=== PATIENT | male | born 1950 | race African-American/Black ===

== ENCOUNTER 2019-08-17 11:40 | Inpatient (IN) | payer MEDICARE, SELFPAY ==
[2019-08-17] VITALS (11 sets, daily range): BP systolic 131–175; BP diastolic 74–103; PULSE 60–72; RESP 14–20; TEMP 35.9–36.3; O2SAT 90–99; BMI 26.2
--- NOTE | ~2019-08-17 | US_ITS ---
EXAMINATION: US carotid duplex BI DATE: 08/18/2019 13:54 INDICATION: Syncope TECHNIQUE: Grayscale, color Doppler, and pulsed Doppler images of the cervical carotid arteries were obtained. The degree of vessel stenosis is placed in one of the following categories: normal, <50%, 5 0-69%, >=70% but less than near-occlusion, near-occlusion, or total occlusion. Note that percent sten osis relative to normal distal artery lumen diameter is indirectly measured from velocity measurement s as described by Bob, et al. Radiology 2003; 229:340-346. Notes: Normal: Peak systolic velocity <125 centimeters/sec and no plaque <50%. Peak systolic velocity <125 ( EDV <40; ICA/CCA PSV ratio <2.0; used these factors only a tandem lesions or low cardiac output or co ntralateral disease) 50-69 %: PSV 125-230 (EDV 40-100; ratio 2-4) >= 70% but less than near occlusion: PSV greater than 230 (EDV > 100; ratio> 4.0) Near Occlusion: PSV that is variable; markedly narrowed lumen Occlusion: Absent flow on color/spectral Doppler and no lumen on ingram scale. COMPARISON: None. FINDINGS: RIGHT: The right common carotid artery (CCA) peak systolic velocity (PSV) is 32 cm/s. The right internal car otid artery (ICA) PSV is 40 cm/s. The right ICA end-diastolic velocity (EDV) is 8 cm/s. The right ICA /CCA PSV ratio is 1.2. The external carotid artery (ECA) PSV is 55 cm/s. There is antegrade flow in t he right vertebral artery. LEFT: The left CCA PSV is 48 cm/s. The left ICA PSV is 65 cm/s. The left ICA EDV is 11 cm/s. The left ICA/C CA PSV ratio is 1.3. The ECA PSV is 58 cm/s. There is antegrade flow in the left vertebral artery. IMPRESSION: 1. Less than 50% stenosis in the right internal carotid artery by sonographic criteria. 2. Less than 50% stenosis in the left internal carotid artery by sonographic criteria. Reviewed, dictated and finalized at location B. NESS TRANSFORMATION ANALYST IMPRESSION: 1. Less than 50% stenosis in the right internal carotid artery by sonographic sonia hayes. 2. Less than 50% stenosis in the left internal carotid artery by sonographic frank rowell.
--- NOTE | ~2019-08-17 | CT_ITS ---
EXAMINATION: CT brain wo con EXAM DATE: 08/17/2019 16:17 Confusion. Low blood sugar. INDICATION: Altered mental status. TECHNIQUE: Spiral CT of the head was performed without contrast. Axial, coronal and sagittal images were reviewed. The dose-length product (DLP) for this examination was 605.33 mGy-cm. The exposure w as tailored according to patient size, and iterative reconstruction (ASIR) was used as additional dos e reduction technique. There is no prior study for comparison. FINDINGS: There is no acute intraparenchymal hemorrhage. No evidence of intraparenchymal brain mass lesion. No evidence of acute infarction. Please note that initial head CT has limited sensitivity f or small or acute infarctions. Large old right frontal lobe infarction. Moderate old left frontal lo be and right parietal lobe infarctions. Punctate old bilateral basal ganglia and left caudate head la cunar infarctions. There is moderate periventricular and subcortical hypodensity, nonspecific but pro bably related to small vessel ischemic disease. There is mild prominence of the sulci and ventricle s related to cerebral atrophy. There is intracranial carotid arteriosclerosis. There are no extra- axial collections. There is no mass effect or midline shift. The orbits are unremarkable. Soft tis keisha is unremarkable. The visualized sinuses and mastoid air cells are well aerated. Old mildly dep ressed right frontal sinus fracture. IMPRESSION: 1. No acute intracranial findings. 2. Chronic age related findings. 3. Old infarctions. Reviewed, dictated and finalized at location A. HOLOGIST EDUCATIONAL
--- NOTE | ~2019-08-17 | MR_ITS ---
EXAMINATION: MR brain/brain stem wo con DATE: 08/18/2019 15:03 INDICATION: Cerebrovascular accident. TECHNIQUE: Magnetic resonance imaging (MRI) of the brain and brainstem was performed without intraven ous contrast. Axial diffusion-weighted imaging was performed. The patient was unable to perform addit ional imaging. COMPARISON: Head CT 08/17/2019 FINDINGS: There is severe motion artifact. There are areas of chronic encephalomalacia in the right f rontal lobe, right temporal parietal occipital region, and left frontal lobe. Images are nondiagnosti c for evaluation of acute infarct. The ventricles are normal in size. IMPRESSION: 1. Chronic encephalomalacia in the right frontal lobe, right temporal parietal occipital region, and left frontal lobe. 2. Severe motion artifact. Images are nondiagnostic for evaluation of acute infarct. Reviewed, dictated and finalized at location A. RAL APPELLATE LAW CLERK IMPRESSION: 1. Chronic encephalomalacia in the right frontal lobe, right temporal parietal occipital region, and left frontal lobe. 2. Severe motion artifact. Images are nondiagnostic for evaluation of acute inf arct.
--- NOTE | ~2019-08-17 | XR_ITS ---
EXAMINATION: XR barium swallow modified DATE: 08/23/2019 10:30 INDICATION: Dysphagia after stroke TECHNIQUE: The patient was given barium-containing material of multiple consistencies to swallow by denilson vilchis speech pathologist while I performed fluoroscopy. A single fluoroscopic spot image was recorded. Denilson vilchis DAP for this procedure was 1.5 Gycm2. Fluoroscopy exposure time was 1.5 minutes. A single lateral spot radiograph of the neck soft tissues was obtained. FINDINGS: The single lateral spot radiograph of the neck demonstrates mild spondylosis. Patient was unable to i nitiate swallow therefore the examination was terminated IMPRESSION: 1. Patient unable to initiate swallow. Please refer to the speech therapy report for additional swall ow-related findings and intake recommendations. Reviewed, dictated and finalized at location A. SANDER IMPRESSION: 1. Patient unable to initiate swallow. Please refer to the speech therapy repor t for additional swallow-related findings and intake recommendations.
--- NOTE | ~2019-08-17 | XR_ITS ---
XR chest 1V portable 08/17/2019 12:30 Indication: Shortness of breath Procedure: AP portable chest Comparison: No prior studies for comparison. Findings: Cardiomegaly with interstitial edema. There is atherosclerosis of the aorta. No pneumothora x. Moderate osteoarthritis of the glenohumeral joints. Impression: 1: Cardiomegaly with interstitial edema. Reviewed, dictated and finalized at location B. RNED GOODS INSPECTOR Impression: 1: Cardiomegaly with interstitial edema.
[2019-08-17 11:45] LABS: Glucose Point of Care 81 (65-105)
--- NOTE | 2019-08-17 11:46 | ECG_ITS ---
Measurements Intervals [place] Rate: 61 P: 35 NV: 178 QRS: 203 QRSD: 138 T: -3 QT: 512 QTc: 516 Interpretive Statements SINUS RHYTHM POSSIBLE LEFT ATRIAL ENLARGEMENT INTRAVENTRICULAR CONDUCTION DELAY CANNOT RULE OUT SEPTAL INFARCT, AGE INDETERMINATE LATERAL INFARCT, AGE INDETERMINATE BORDERLINE ST-T WAVE ABNORMALITY- INF/LAT LEADS BASELINE ARTIFACT- V1 ABNORMAL ECG Electronically Signed On 08-17-2019 15:38:53 SEAPORT PLANNING MANAGER by Andrew Romo D.O.
--- NOTE | 2019-08-17 11:48 | ED.RECABL ---
HPI - Recheck/Abnormal Lab/Rx General Chief Complaint: Recheck/Abnormal Lab/Rx Stated Complaint: low blood sugar Time Seen by Provider: 08/17/19 11:43 Source: EMS and RN notes reviewed Mode of arrival: EMS Limitations: clinical condition History of Present Illness HPI narrative: Pt is a 69 y/o male with a PMHx of CVA, who presents to the ED, via EMS, from home with c/o low BS. Per EMS, pt's BS was 44 and he was given 1 AMP of D50. Per nurse, pt's BS was 81 upon arrival to the ED. Per nurse, pt does not speak at baseline because he is unable to form sentences, but occasionally blurts out words. Pt's family usually gives him his medications. Per EMS, pt was at 88% O2 Sat on room air so they applied 2L O2 via nasal cannula. A complete HPI is limited d/t pt's clinical condition. Per family pt has H/O several strokes in January of 2011. Pt's baseline is primarily nonverbal but is able to say yes or no . Family reports that since July 08, pt has had congestion and rhinorrhea and saw his PCP last week and received Abx. Pt was supposed to see PCP today but was too weak. Pt can normally ambulate on his own but for the past week has been laying around. Pt has a lack of appetite x1 week but was able to eat yesterday. He sometimes chokes when eating. Pt has a recent onset of bottom lip drooping and is no longer following normal commands. Pt no longer able to use the toilet and relies on depends to urinate. MD complaint: abnormal lab (low BS) Returns today for: other (low BS) Description of abnormal result: Glucose was 44 Associated symptoms: none Treatments prior to arrival: other (1 AMP of D50, 2L O2) Related Data Home Medications Medication Instructions Recorded Confirmed amlodipine 10 mg tablet 10 mg PO DAILY 06/08/19 08/01/19 aspirin 325 mg tablet 325 mg PO DAILY 06/08/19 08/01/19 blood sugar diagnostic #10 each 06/08/19 08/01/19 blood-glucose meter #1 each 06/08/19 08/01/19 carvedilol 25 mg tablet 25 mg PO BID tablet 06/08/19 08/01/19 cetirizine 10 mg tablet 5 mg PO DAILY PRN 06/08/19 08/01/19 citalopram 20 mg tablet 20 mg PO DAILY 06/08/19 08/01/19 famotidine 20 mg tablet 20 mg PO BID tablet 06/08/19 08/01/19 hydralazine 50 mg tablet 50 mg PO TID 06/08/19 08/01/19 hydrochlorothiazide 12.5 mg tablet 12.5 mg PO DAILY 06/08/19 08/01/19 losartan 25 mg tablet 25 mg PO DAILY 06/08/19 08/01/19 rosuvastatin 20 mg tablet 20 mg PO DAILY 06/08/19 08/01/19 Allergies Allergy/AdvReac Type Severity Reaction Status Date / Time latex Allergy Unknown Unknown Verified 06/08/19 14:56 Penicillins Allergy Unknown Unknown Verified 06/08/19 14:56 Review of Systems Review of Systems: ROS unobtainable: unobtainable due to mental condition [facility] Past Medical History Medical History (Updated 08/17/19 @ 17:16 by Basilio Denis DO) Allergies Catat[place] CHF (congestive heart failure) Hypertension Stroke 3: 04/2012 Swallowing difficulty Syncope Type 2 diabetes mellitus Surgical History Surgical History (Updated 08/17/19 @ 11:57 by Geo Kraus) No significant past surgical history Family History Family History (Updated 06/07/19 @ 16:54 by Naa Rivera [facility]) Father Hypertension Acute myocardial infarction Mother Hypertension Cerebrovascular accident Heart disease Sibling Asthma Sibling Epilepsy Social History Social History Smoking packs per day: 1 Smoking cigarettes per day: 20.0 Smoking status: Former smoker Smoking end date: 08/02/99 Alcohol intake: never Substance use: never Gender identity (if verbalized by the patient): Male Exam Narrative: Exam Narrative: APPEARANCE: No acute distress, nontoxic, resting in bed EYES: PERRL HEENT: Normocephalic, atraumatic, oral mucosa dry RESPIRATORY: No respiratory distress Clear to auscultation bilaterally with no rhonchi wheezing or rales. CARDIOVASCULAR: Regular rate and rhythm without murmurs rubs or
[2019-08-17] MEDS: DEXTROSE 50% 25 GM/50 ML SYRINGE IV PUSH ×2 (13:22→18:15)
[2019-08-17 13:23] LABS: Glucose Point of Care 59 (65-105)
[2019-08-17 14:02] LABS: Basophils Percent Auto 0.2 % (0.2-1.2); Eosinophils Percent Auto 0.5 % (0-4.4); Hematocrit 43.7 % (42.0-52.0); Hemoglobin 13.9 g/dL (14.0-18.0); Immature Granulocyte Absolute 0.03 K/mm3 (0.00-0.031); Immature Granulocyte Percent A 0.7 % (0-0.5); Lymphocytes Percent Auto 11.5 % (18.3-44.2); Mean Corpuscular HGB Conc 31.8 g/dl (32-36); Mean Platelet Volume 9.7 fl (7.4-10.4); Monocytes Absolute Auto 0.5 K/mm3 (0.1-0.6); Monocytes Percent Auto 11.8 % (2.6-8.5); Neutrophils Absolute Auto 3.3 K/mm3 (1.3-6.7); Neutrophils Percent Auto 75.3 % (45.5-73.1); Nucleated Red Blood Cells Perc 0.5 % (0.0-0.2); Platelet Count Result 227 k/mm3 (150-375); Red Cell Distribution Width 14.9 % (11.5-14.5); White Blood Count 4.3 K/mm3 (4.5-10.0)
[2019-08-17 14:30] LABS: Glucose Point of Care 99 (65-105)
--- NOTE | 2019-08-17 14:30 | PC.NURSE ---
per friend states pt has not been eating or drinking well since july. has been holding food and meds in his mouth. less alert than his normal. states pt is normally nonverbal on his best days.
[2019-08-17 14:40] LABS: Add Urine Microscopic? YES; Appearance Urine Clear (Clear); Bacteria Urine Trace /hpf; Bilirubin Urine Negative (Negative); Blood Urine 1+ (Negative); Color Urine Yellow (Yellow); Glucose Urine UA 3+ mg/dL (Negative); Ketones Urine Negative (Negative); Leukocyte Esterase Ur Negative LEU/UL (Negative); Mucus Urine Rare /lpf; Nitrate Urine Negative (Negative); Protein Urine 3+ mg/dL (Negative); RBC Urine 0-2 /hpf (0-2); Specific Grav Ur 1.026 (1.001-1.035); Squamous Epithelial Cell Urine Rare /hpf (Few); WBC Urine 0-3 /hpf
[2019-08-17 15:45] LABS: Glucose Point of Care 70 (65-105)
[2019-08-17 16:44] LABS: Blood Urea Nitrogen 26 mg/dL (9-20); Calcium 9.1 mg/dL (8.4-10.2); Carbon Dioxide 21 mmol/L (22-30); Chloride 110 mmol/L (98-107); Estimated CRCL calculation 50 ml/min; Estimated Glomerular Filt Rate > 60; Glucose 71 mg/dL (75-110); Potassium 3.5 mmol/L (3.4-5.0); Sodium 144 mmol/L (137-145)
[2019-08-17] MEDS: DEXTROSE 5%/0.45% SOD CHL 1,000 ML 100 ML IV CONT (17:02)
[2019-08-17 17:03] LABS: Glucose Point of Care 66 (65-105)
[2019-08-17 18:07] LABS: Glucose Point of Care 45 (65-105)
[2019-08-17 18:50] LABS: Glucose Point of Care 100 (65-105)
--- NOTE | 2019-08-17 20:01 | PM.IMHP ---
H&P: HPI History of Present Illness Chief complaint: hypoglycemia Narrative: This is a 69 year old Diabetic male with known #3 past CVAs in 2010 who presented to the hospital after suffering what appeared to be a syncopal episode at home today. The patient is known to normally eat well on his own and is nonverbal from his previous CVAs. The patient's signifciant other who lives with him states she has noticed that he has had a decline over the past few weeks including more confusion and more difficulty swallowing. He last ate food yesterday but has not been drinking any fluids over the past few days. She also noticed that the patient is mostly just sleeping all the time now and has been much more confused this week. He normally follows commands well and for the past 2 days he hasn't been following her commands. She hasn't noticed that he has had a fever. Today they were at home and she was trying to get him ready to go to the doctor's office when he was walking in the living room and simply started to go down. He describes him falling up against the wall and sliding down. He was poorly responsive and drooling out of the left side of his mouth. EMS was called and on arrival they found his blood glucose to be 35 mg/dl. The patient was evaluated in the ER tonight and found to be hypoglycemic. He was started on Dextrose IV. We have been asked to admit the patient to the hospital for his acute altered mental status. The patient is nonverbal and only opens his eyes to physical stimuli tonight. He will not follow any commands. Review of Systems Review of Systems: All systems reviewed & are unremarkable except as noted in HPI and below PMFSH Past Medical History Medical History Allergies Catat[place] CHF (congestive heart failure) Hypertension Stroke 3: 04/2012 Swallowing difficulty Syncope Type 2 diabetes mellitus Surgical History Surgical History No significant past surgical history Family History Family History Father Hypertension Acute myocardial infarction Mother Hypertension Cerebrovascular accident Heart disease Sibling Asthma Sibling Epilepsy Social History Social History Smoking packs per day: 1 Smoking cigarettes per day: 20.0 Years smoked: 25 Smoking pack-years: 25.00 Smoking status: Former smoker Tobacco type: cigarettes Smoking end date: 08/02/99 Alcohol intake: never Substance use: never Gender identity (if verbalized by the patient): Male Spiritual care concerns: No Meds Home Medications and Allergies Home Medications Medication Instructions Recorded Confirmed Type amlodipine 10 mg tablet 10 mg PO DAILY 06/08/19 08/17/19 History aspirin 325 mg tablet 325 mg PO DAILY 06/08/19 08/17/19 History carvedilol 25 mg tablet 25 mg PO BID tablet 06/08/19 08/17/19 History cetirizine 10 mg tablet 5 mg PO DAILY PRN 06/08/19 08/17/19 History citalopram 20 mg tablet 20 mg PO DAILY 06/08/19 08/17/19 History famotidine 20 mg tablet 20 mg PO BID tablet 06/08/19 08/17/19 History hydralazine 50 mg tablet 50 mg PO TID 06/08/19 08/17/19 History hydrochlorothiazide 12.5 mg tablet 12.5 mg PO DAILY 06/08/19 08/17/19 History losartan 25 mg tablet 25 mg PO DAILY 06/08/19 08/17/19 History rosuvastatin 20 mg tablet 20 mg PO DAILY 06/08/19 08/17/19 History metformin 500 mg tablet 1,000 mg PO BID #360 tablet 07/24/19 08/17/19 Rx insulin glargine [Sandraaglar KwikPen 36 unit SUBCUT HS 08/17/19 08/17/19 History U-100 Insulin] Allergies Allergy/AdvReac Type Severity Reaction Status Date / Time latex Allergy Unknown Unknown Verified 06/08/19 14:56 Penicillins Allergy Unknown Unknown Verified 06/08/19 14:56 Vital Signs Vital Signs - 24 hr 08/17/19 11:45 08/17/19 12:15
[2019-08-17 20:17] LABS: Glucose Point of Care 124 (65-105)
[2019-08-17 21:07] LABS: Glucose Point of Care 87 (65-105)
--- NOTE | 2019-08-17 21:55 | ADMGEN ---
This patient, Mak Holcomb, was admitted to IMU Room 203-01. Patient/family oriented to hospital policies and general routines including ID bracelet, bed and alarms, visiting hours, pain management, procedures, bathroom and other care routines, personal items, smoking policy, room service/diet, and visiting hours. Valuables list has been completed. Information on how to activate the Rapid Response Team has been discussed. Patient/Family are encouraged to report perceived risks to care and to ask questions if they do not understand what they are told or what they should do.
[2019-08-17 23:14] LABS: Glucose Point of Care 109 (65-105)
[2019-08-18] VITALS (11 sets, daily range): BP systolic 148–159; BP diastolic 71–106; PULSE 64–106; RESP 20–26; TEMP 35.9–36.3; O2SAT 90–100; BMI 27.1
--- NOTE | 2019-08-18 | ECHO_ITS ---
Patient Info Name: Mak Holcomb Age: 69 years : 1950 Gender: Male Ht: 68 in Wt: 172 lbs BSA: 1.95 m2 HR: 45 bpm BP: 177 / 71 mmHg Technical Quality: Good Exam Date: 08/18/2019 11:17 AM Exam Location: [facility] Patient Status: Outpatient Admit Date: 08/17/2019 Staff Ordering Physician: Guru Frausto MD Hand Ii Cutter: Erwin Whelan, SEVERIANO, RT Attending Provider: Edna Holbrook MD Referring Physician: Jett RAJAN; Exam Type: CA echo doppler color flow Study Info Indications I50.9 - Heart failure, unspecified Complete two-dimensional, color flow and Doppler transthoracic echocardiogram is performed. Summary 1. Left ventricular chamber dimension is severely enlarged. 2. Left ventricular systolic function is severely reduced, estimated at 15-20%. 3. Left ventricular septal wall motion is abnormal with septal motion related to bundle branch block. 4. The left ventricular diastolic function is grade III diastolic dysfunction. 5. E/e' 28 is significantly elevated. 6. TAPSE 1.4 cm suggests RV systolic dysfunction. 7. Left atrial chamber dimension is moderately enlarged. 8. Right atrial chamber dimension is moderately enlarged. 9. There is mild aortic valve sclerosis. 10. Mildly thickened mitral valve leaflets. 11. There is moderate to severe mitral valve regurgitation. 12. There is mild to moderate tricuspid valve regurgitation. 13. Severe pulmonary hypertension, estimated pulmonary arterial systolic pressure is 87 mmHg. 14. There is trace pulmonic regurgitation. 15. Dilated inferior vena cava with >50% collapse upon inspiration consistent with elevated right atrial pressure, 10 mmHg. 16. There is small circumferential pericardial effusion. Left Ventricle E/e' 28 is significantly elevated. Left ventricular chamber dimension is severely enlarged. Left ventricular systolic function is severely reduced, estimated at 15-20%. Left ventricular septal wall motion is abnormal with septal motion related to bundle branch block. The left ventricular diastolic function is grade III diastolic dysfunction. Right Ventricle TAPSE 1.4 cm suggests RV systolic dysfunction. Right ventricular chamber dimension is normal. Right ventricular systolic function is reduced. Left Atria Left atrial chamber dimension is moderately enlarged. Right Atria Right atrial chamber dimension is moderately enlarged. Aortic Valve The aortic valve is trileaflet. There is mild aortic valve sclerosis. There is no aortic valve stenosis. There is no aortic valve regurgitation. Pulmonic Valve There is trace pulmonic regurgitation. Mitral Valve Mildly thickened mitral valve leaflets. There is no mitral valve stenosis. There is moderate to severe mitral valve regurgitation. Tricuspid Valve There is mild to moderate tricuspid valve regurgitation. Severe pulmonary hypertension, estimated pulmonary arterial systolic pressure is 87 mmHg. Pericardium/Pleural There is small circumferential pericardial effusion. Inferior Vena Cava Dilated inferior vena cava with >50% collapse upon inspiration consistent with elevated right atrial pressure, 10 mmHg. Aorta The aortic root size at the sinus of Valsalva is normal. Left Ventricular Outflow Tract Name Value Normal LVOT 2D
[2019-08-18] MEDS: DEXTROSE 5%/0.45% SOD CHL 1,000 ML 160 ML IV CONT ×2 (00:39→06:22)
[2019-08-18 03:54] LABS: Glucose Point of Care 127 (65-105)
[2019-08-18 05:18] LABS: Basophils Percent Auto 0.5 % (0.2-1.2); Eosinophils Absolute Auto 0.1 K/mm3 (0-0.3); Eosinophils Percent Auto 2.1 % (0-4.4); Hematocrit 44.2 % (42.0-52.0); Hemoglobin 13.9 g/dL (14.0-18.0); Immature Granulocyte Absolute 0.01 K/mm3 (0.00-0.031); Immature Granulocyte Percent A 0.3 % (0-0.5); Lymphocytes Absolute Auto 0.54 K/mm3 (0.9-3.2); Lymphocytes Percent Auto 13.9 % (18.3-44.2); Mean Corpuscular HGB Conc 31.4 g/dl (32-36); Mean Corpuscular Hemoglobin 29.1 pg (26-34); Mean Corpuscular Volume 92.7 fl (80-100); Mean Platelet Volume 9.3 fl (7.4-10.4); Monocytes Absolute Auto 0.4 K/mm3 (0.1-0.6); Monocytes Percent Auto 10.8 % (2.6-8.5); Neutrophils Absolute Auto 2.8 K/mm3 (1.3-6.7); Neutrophils Percent Auto 72.4 % (45.5-73.1); Nucleated Red Blood Cells Perc 0.5 % (0.0-0.2); Platelet Count Result 238 k/mm3 (150-375); Red Blood Count 4.77 M/mm3 (4.6-6.20); Red Cell Distribution Width 14.9 % (11.5-14.5); White Blood Count 3.9 K/mm3 (4.5-10.0)
[2019-08-18 05:27] LABS: Blood Urea Nitrogen 20 mg/dL (9-20); Calcium 8.6 mg/dL (8.4-10.2); Carbon Dioxide 24 mmol/L (22-30); Chloride 110 mmol/L (98-107); Cholesterol 106 mg/dL (0-200); Estimated CRCL calculation 50 ml/min; Estimated Glomerular Filt Rate > 60; Glucose 137 mg/dL (75-110); HDL Direct 34 mg/dL; Potassium 3.3 mmol/L (3.4-5.0); Sodium 140 mmol/L (137-145); Triglycerides 52 mg/dL (<150)
[2019-08-18 05:37] LABS: LDL Cholesterol Direct 51 mg/dL
[2019-08-18 06:35] LABS: Folic Acid 9.2 ng/mL (2.76->20)
[2019-08-18 08:11] LABS: Glucose Point of Care 141 (65-105)
--- NOTE | 2019-08-18 12:34 | PCSTNOTE ---
Therapist was informed by nursing that this patient is not awake and alert enough to respond to evaluation tasks including MBS. Nursing will reassess tomorrow for appropriateness for evaluation tasks.
[2019-08-18 12:42] LABS: Glucose Point of Care 196 (65-105)
--- NOTE | 2019-08-18 16:05 | PM.IMPN ---
Progress Note: A&P Assessment and Plan (1) Acute encephalopathy: Code(s): G93.40 - Encephalopathy, unspecified Status: Acute Assessment and Plan: Sugar has been corrected and most likely acute metabolic encephalopathy but still remains less responsive according to caregiver. Continue to monitor sugars closely and provide supportive care. MR today nondiagnostic due to motion artifact (2) Hypoglycemia: Code(s): E16.2 - Hypoglycemia, unspecified Status: Acute Assessment and Plan: Metformin and Lantus both are on hold continue to monitor (3) Hypertension: Code(s): I10 - Essential (primary) hypertension Status: Chronic Assessment and Plan: Slightly permissive hypertension because still could be infarct over dealing with. He has not been alert no to take his oral medication (4) CHF (congestive heart failure): Code(s): I50.9 - Heart failure, unspecified Status: Chronic Assessment and Plan: Chronic combined systolic and diastolic heart failure as evidence by echo today with EF 15% and grade 3 diastolic dysfunction. Will decrease his fluid so as not to fluid overload and resume oral medications as soon as possible Subjective Date/time seen: 08/18/19 16:05 Interval history: Date of visit 08/18/2019. 69-year-old hypertensive type 2 diabetic status post CVA with chronic aphasia admitted with altered mental status and found to be hypoglycemic. Sugar was corrected Medi slow to respond back to his baseline. Exam Narrative: Exam Narrative: Blood pressure 156/100 pulse is 84 and regular satting 100% on room air afebrile Pupils equal reactive to light sclera anicteric Lungs clear no wheezing consolidation CV regular rate rhythm no murmurs Abdomen is soft nontender Extremities without edema Neuro not following any commands or responding to verbal stimuli, nothing definitely focal been has chronic aphasia Objective Data Vital Signs Vital Signs: Vital Signs - 24 hr 08/17/19 16:18 08/17/19 17:50 08/17/19 18:56 Temperature Pulse Rate 72 72 69 Respiratory Rate 16 16 16 Blood Pressure 131/99 H 172/103 H 161/98 H Pulse Oximetry 99 08/17/19 19:12 08/17/19 20:00 08/17/19 22:00 Temperature 35.9 C L Pulse Rate 72 69 68 Respiratory Rate 20 Blood Pressure 157/74 H Pulse Oximetry 95 08/18/19 00:00 08/18/19 02:00 08/18/19 03:53 Temperature 36.3 C L Pulse Rate 66 64 69 Respiratory Rate 20 26 H Blood Pressure 153/74 H Pulse Oximetry 95 90 08/18/19 04:00 08/18/19 05:50 08/18/19 08:00 Temperature 36.2 C L Pulse Rate 69 69 86 Respiratory Rate 26 H 22 H Blood Pressure 157/97 H Pulse Oximetry 90 100 08/18/19 12:07 08/18/19 15:47 Temperature 35.9 C L 36.1 C L Pulse Rate 70 84 Respiratory Rate 22 H 22 H Blood Pressure 148/81 H 159/106 H Pulse Oximetry 93 100 Intake/Output Intake/Output: Intake & Output 08/15/19 08/16/19 08/17/19 08/18/19 23:59 23:59 23:59 23:59 Intake Total 1000 1000 Balance 1000 1000 Meds/Results Medications: Active Medications Generic Name Dose Route Start Last Admin Trade Name Freq PRN Reason Stop Dose Admin Dextrose 12.5 gm 08/17/19 17:11 08/17/19 18:15 Dextrose 50% Syringe IV PUSH 12.5 gm PRN PRN Administration Hypoglycemia Protocol Glucose 15 gm 08/17/19 17:11 Glutose 15 PO PRN PRN Hypoglycemia Protocol Hydralazine HCl 10 mg 08/17/19 20:02 Apresoline Hcl Inj IV PUSH Q8H PRN see comments Dextrose 1,000 mls @ 100 mls/hr 08/17/19 17:11 Dextrose 5% 1,000 Ml IVPB PRN PRN Hypoglycemia Protocol Potassium Chloride 500 mls @ 125 mls/hr 08/18/19 12:21 08/18/19 15:03 Kcl 40 Meq/D5w 500 Ml Peripheral IVPB 08/18/19 16:20 125 mls/hr ONCE ONE Administration Dextrose 1,000 mls @ 30 mls/hr 08/18/19 15:55 Dextrose 5% 1,000 Ml IV CONT .Q24H RUDY Radiology Results: ITS Impressions
[2019-08-18 16:13] LABS: Glucose Point of Care 142 (65-105)
--- NOTE | 2019-08-18 17:27 | CONS_ITS ---
DATE OF CONSULTATION: Patient of Dr. Edna Holbrook. HISTORY: A 69-year-old has been admitted to [facility] through the emergency room for the complaint of syncopal episode at home. The patient carries the diagnosis of: 1. Diabetes mellitus. 2. Recurrent cerebrovascular accident. 3. Congestive heart failure. 4. Hypertension. 5. Dysphagia. At the time of admission, as per the information available from the family, he normally eats well, but over the last several days, he declined significantly with more difficulties in swallowing, difficulties in following the commands. By the time he came to the emergency room this time, his blood sugar was only 35, for which he was treated accordingly. He has been taking multiple medications as outlined. PHYSICAL EXAMINATION: VITAL SIGNS: Stable. GENERAL: On examination today, he was awake, alert, but appearing somewhat well. He was able to follow the verbal commands. HEENT: Head was normocephalic with no cranial bruit. NECK: Supple with no meningeal signs. No cervical bruit. No thyromegaly. No lymphadenopathy. HEART: Regular. LUNGS: Clear. ABDOMEN: Soft. NEUROLOGICAL: He was awake, alert. Pupils round, regular. Wray of vision full. Extraocular movements full. Face symmetrical. Tongue midline. Uvula midline. Motor examination revealed him to have decreased strength 4/5 in upper and lower extremities in addition to the decreased sensation distally in both lower extremities. Plantar responses were questionably up. Evaluation up until now included CT scan of the head, which was compatible with old infarction, large right frontal lobe infarct, and old left frontal lobe and right parietal lobe infarct as well with bilateral basal ganglia and caudate nucleus involvement. At this stage, he is receiving hydralazine 10 mg IV q.8 hours p.r.n. He will be started on the aspirin subsequently and we will also obtain the EEG. IDANIA HALL M.D. LAB ASSOCIATE LAB ASSOCIATE D I MT: Nick IRVING
[2019-08-18 20:42] LABS: Glucose Point of Care 156 (65-105)
[2019-08-18 23:49] LABS: Glucose Point of Care 139 (65-105)
[2019-08-19] VITALS (10 sets, daily range): BP systolic 107–184; BP diastolic 64–94; PULSE 68–82; RESP 20–24; TEMP 36.1–36.8; O2SAT 80–100
[2019-08-19 05:09] LABS: Blood Urea Nitrogen 18 mg/dL (9-20); Calcium 8.4 mg/dL (8.4-10.2); Carbon Dioxide 22 mmol/L (22-30); Chloride 111 mmol/L (98-107); Estimated CRCL calculation 43 ml/min; Estimated Glomerular Filt Rate > 60; Glucose 116 mg/dL (75-110); Potassium 3.6 mmol/L (3.4-5.0); Sodium 141 mmol/L (137-145)
[2019-08-19 05:19] LABS: Glucose Point of Care 122 (65-105)
[2019-08-19] MEDS: DEXTROSE 5% 1,000 ML 1,000 ML 30 ML IV CONT (05:38)
--- NOTE | 2019-08-19 10:39 | PC.NURSE ---
This patient, Mak Holcomb, was transferred to [facility] on 08/19/19 at 1038. Personal belongings sent with patient. Belongings list checked and signed with receiving RN. Report given to BERT Olsen. Appropriate documentation sent with patient.
--- NOTE | 2019-08-19 10:40 | PC.NURSE ---
This patient, Mak Holcomb, was received from [facility] on 08/19/19 at 1040. Personal belongings list checked and signed. Patient/family oriented to unit policies and routines
[2019-08-19 12:33] LABS: Glucose Point of Care 97 (65-105)
--- NOTE | 2019-08-19 12:46 | PCSTNOTE ---
Bedside Swallow Evaluation This patient was seen for a bedside swallow evaluation due to worsening dysphagia in the last few days. He has a history of dysphagia after 3 pasts CVAs, but his significant other reported that it had worsened, along with his general mental status and ability to follow commands. The pt is nonverbal at baseline and was not able to follow commands during this evaluation. The pt was seated upright at the edge of the bed and given trials of thin liquid via cup, which elicited coughing. Trials of moderately thick liquid, extremely thick liquid, and puree did not elicit coughing, but left significant oral residue indicating only partial deglutition. The pt's pharyngeal swallow was severely delayed. It is recommended for the pt to remain NPO until his mental status improves and he can initiate swallows. Therapeutic feedings only to focus on initiation of swallow and bolus control to reduce oral residue. If mental status improves, consider advancing diet. [ End ]
--- NOTE | 2019-08-19 13:19 | WPDNEUROPN ---
Progress Note: A&P Additional Plan bihemispheric disease with dysphagia/discussed with Review of Systems Review of Systems: All systems reviewed & are unremarkable except as noted in HPI and below Exam Const: General: no acute distress, confusion and ill appearing Nutritional Appearance: average body habitus Orientation/consciousness: confusion Limitations: altered mental status and physical limitations Eyes: General: appearance normal, both eyes and all related structures Pupils: Equal, round and reactive pupils present EOM: EOMs intact bilaterally Neck: Neck: full ROM Resp: Auscultation: clear to auscultation bilaterally GI: Auscultation: normal bowel sounds Neuro: Cranial nerves: Yes Nystagmus not present Cognition (Neuro): abnormal cognition Speech: Abnormal speech present Gait exam (Neuro): Unable to assess gait Motor exam (neuro): Abnormal motor strength present Sensory Exam: Sensory deficit (Neuro) Objective Data Vital Signs Vital Signs: Vital Signs - 24 hr 08/18/19 15:47 08/18/19 20:00 08/18/19 20:26 Temperature 36.1 C L 36.1 C L Pulse Rate 84 106 H 106 H Respiratory Rate 22 H 22 H 22 H Blood Pressure 159/106 H 156/77 H Pulse Oximetry 100 90 90 08/18/19 23:52 08/19/19 04:10 08/19/19 05:03 Temperature 36.2 C L 36.3 C L Pulse Rate 72 82 Respiratory Rate 22 H 24 H Blood Pressure 149/71 H 184/94 H Pulse Oximetry 93 90 80 L 08/19/19 05:37 08/19/19 08:00 08/19/19 10:53 Temperature 36.1 C L 36.4 C Pulse Rate 72 70 Respiratory Rate 20 20 Blood Pressure 154/73 H 152/80 H 148/92 H Pulse Oximetry 100 93 100 Intake/Output Intake/Output: Intake & Output 08/16/19 08/17/19 08/18/19 08/19/19 23:59 23:59 23:59 23:59 Intake Total 1000 2500 Balance 1000 2500 Meds/Results Medications: Active Medications Generic Name Dose Route Start Last Admin Trade Name Freq PRN Reason Stop Dose Admin Dextrose 12.5 gm 08/17/19 17:11 08/17/19 18:15 Dextrose 50% Syringe IV PUSH 12.5 gm PRN PRN Administration Hypoglycemia Protocol Glucose 15 gm 08/17/19 17:11 Glutose 15 PO PRN PRN Hypoglycemia Protocol Hydralazine HCl 10 mg 08/17/19 20:02 Apresoline Hcl Inj IV PUSH Q8H PRN see comments Dextrose 1,000 mls @ 100 mls/hr 08/17/19 17:11 Dextrose 5% 1,000 Ml IVPB PRN PRN Hypoglycemia Protocol Dextrose 1,000 mls @ 30 mls/hr 08/18/19 15:55 08/19/19 05:38 Dextrose 5% 1,000 Ml IV CONT 30 mls/hr .Q24H RUDY Administration Radiology Results: ITS Impressions Chest X-Ray 08/17/19 12:32 Impression: 1: Cardiomegaly with interstitial edema. Head CT 08/17/19 16:23 IMPRESSION: 1. No acute intracranial findings. 2. Chronic age related findings. 3. Old infarctions. Carotid Doppler Study 08/18/19 14:08 IMPRESSION: 1. Less than 50% stenosis in the right internal carotid artery by sonographic criteria. 2. Less than 50% stenosis in the left internal carotid artery by sonographic criteria. Brain MRI 08/18/19 15:25 IMPRESSION: 1. Chronic encephalomalacia in the right frontal lobe, right temporal parietal occipital region, and left frontal lobe. 2. Severe motion artifact. Images are nondiagnostic for evaluation of acute infarct. Labs Labs: Laboratory Results - last 24 hr 08/18/19 08/18/19 08/18/19 16:10 20:37 23:34 Sodium Potassium Chloride Carbon Dioxide BUN Creatinine Estim Creat Clear Calc Estimated GFR Glucose POC Capillary Glucose 142 H 156 H 139 H Calcium 08/19/19 08/19/19 08/19/19 04:13 05:16 12:30 Sodium 141 Potassium 3.6 Chloride 111 H Carbon Dioxide 22 BUN 18 Creatinine 1.40 H Estim Creat Clear Calc 43 Estimated GFR > 60 Glucose 116 H POC Capillary Glucose 122 H 97 Calcium 8.4 Quality VTE Prophylaxis VTE prophylaxis: mechanical ordered
--- NOTE | 2019-08-19 16:30 | PM.IMPN ---
Progress Note: A&P Assessment and Plan (1) Acute encephalopathy: Code(s): G93.40 - Encephalopathy, unspecified Status: Acute Assessment and Plan: Sugar has been corrected and most likely acute metabolic encephalopathy but still remains less responsive according to caregiver. Continue to monitor sugars closely and provide supportive care. MR 1/17 nondiagnostic due to motion artifact Speech therapy feels still not safe for oral meds and food (2) Hypoglycemia: Code(s): E16.2 - Hypoglycemia, unspecified Status: Acute Assessment and Plan: Metformin and Lantus both are on hold continue to monitor FBS today on D5W still 116 (3) Hypertension: Code(s): I10 - Essential (primary) hypertension Status: Chronic Assessment and Plan: Slightly permissive hypertension because still could be infarct dealing with. He has not been alert enough take his oral medication (4) CHF (congestive heart failure): Code(s): I50.9 - Heart failure, unspecified Status: Chronic Assessment and Plan: Chronic combined systolic and diastolic heart failure as evidence by echo today with EF 15% and grade 3 diastolic dysfunction. l decreased his fluid/17 so as not to fluid overload and resume oral medications as soon as possible Subjective Date/time seen: 08/19/19 16:30 Interval history: Date of visit 08/19/2019. 69-year-old hypertensive type 2 diabetic status post CVA with chronic aphasia admitted with altered mental status and found to be hypoglycemic. Sugar was corrected but slow to respond back to his baseline. More alert today but still not following simple commands Exam Narrative: Exam Narrative: Blood pressure 172/80 pulse is 68 and regular satting 100% on room air afebrile Pupils equal reactive to light sclera anicteric Lungs clear no wheezing consolidation CV regular rate rhythm no murmurs Abdomen is soft nontender Extremities without edema Neuro not following any commands but opens eyes to verbal stimuli, nothing definitely focal , has chronic aphasia Objective Data Vital Signs Vital Signs: Vital Signs - 24 hr 08/18/19 20:00 08/18/19 20:26 08/18/19 23:52 Temperature 36.1 C L 36.2 C L Pulse Rate 106 H 106 H 72 Respiratory Rate 22 H 22 H 22 H Blood Pressure 156/77 H 149/71 H Pulse Oximetry 90 90 93 08/19/19 04:10 08/19/19 05:03 08/19/19 05:37 Temperature 36.3 C L Pulse Rate 82 Respiratory Rate 24 H Blood Pressure 184/94 H 154/73 H Pulse Oximetry 90 80 L 100 08/19/19 08:00 08/19/19 10:53 08/19/19 15:12 Temperature 36.1 C L 36.4 C Pulse Rate 72 70 Respiratory Rate 20 20 Blood Pressure 152/80 H 148/92 H Pulse Oximetry 93 100 87 L 08/19/19 15:13 08/19/19 16:28 Temperature 36.8 C Pulse Rate 68 Respiratory Rate 22 H Blood Pressure 172/89 H Pulse Oximetry 90 94 Intake/Output Intake/Output: Intake & Output 08/16/19 08/17/19 08/18/19 08/19/19 23:59 23:59 23:59 23:59 Intake Total 1000 2500 Balance 1000 2500 Meds/Results Medications: Active Medications Generic Name Dose Route Start Last Admin Trade Name Freq PRN Reason Stop Dose Admin Dextrose 12.5 gm 08/17/19 17:11 08/17/19 18:15 Dextrose 50% Syringe IV PUSH 12.5 gm PRN PRN Administration Hypoglycemia Protocol Glucose 15 gm 08/17/19 17:11 Glutose 15 PO PRN PRN Hypoglycemia Protocol Hydralazine HCl 10 mg 08/17/19 20:02 Apresoline Hcl Inj IV PUSH Q8H PRN see comments Dextrose 1,000 mls @ 100 mls/hr 08/17/19 17:11 Dextrose 5% 1,000 Ml IVPB PRN PRN Hypoglycemia Protocol Dextrose 1,000 mls @ 30 mls/hr 08/18/19 15:55 08/19/19 05:38 Dextrose 5% 1,000 Ml IV CONT 30 mls/hr .Q24H RUDY Administration Radiology Results: ITS Impressions Chest X-Ray 08/17/19 12:32 Impression: 1: Cardiomegaly with interstitial edema. Head CT 08/17/19 16:23 IMPRESSION: 1. No acute intra
[2019-08-19] MEDS: hydrALAZINE HCL 20 MG/ML VIAL 10 MG IV PUSH (17:17)
[2019-08-19 17:55] LABS: Glucose Point of Care 98 (65-105)
[2019-08-19] MEDS: ENOXAPARIN 40 MG/0.4 ML SYRINGE SUB-Q (21:41)
[2019-08-20] MEDS: DEXTROSE 5% 1,000 ML 1,000 ML 30 ML IV CONT (05:31)
[2019-08-20 06:37] VITALS: BP 154/80; PULSE 67; RESP 18; TEMP 36.3; O2SAT 98
[2019-08-20 08:44] LABS: Basophils Percent Auto 0.5 % (0.2-1.2); Eosinophils Absolute Auto 0.1 K/mm3 (0-0.3); Eosinophils Percent Auto 2.7 % (0-4.4); Hematocrit 47.4 % (42.0-52.0); Hemoglobin 14.7 g/dL (14.0-18.0); Immature Granulocyte Absolute 0.01 K/mm3 (0.00-0.031); Immature Granulocyte Percent A 0.3 % (0-0.5); Lymphocytes Absolute Auto 0.61 K/mm3 (0.9-3.2); Lymphocytes Percent Auto 16.7 % (18.3-44.2); Mean Corpuscular Hemoglobin 28.7 pg (26-34); Mean Corpuscular Volume 92.6 fl (80-100); Mean Platelet Volume 9.4 fl (7.4-10.4); Monocytes Absolute Auto 0.4 K/mm3 (0.1-0.6); Monocytes Percent Auto 10.1 % (2.6-8.5); Neutrophils Absolute Auto 2.6 K/mm3 (1.3-6.7); Neutrophils Percent Auto 69.7 % (45.5-73.1); Nucleated Red Blood Cells Perc 0.8 % (0.0-0.2); Platelet Count Result 198 k/mm3 (150-375); Red Blood Count 5.12 M/mm3 (4.6-6.20); Red Cell Distribution Width 15.1 % (11.5-14.5); White Blood Count 3.7 K/mm3 (4.5-10.0)
[2019-08-20 08:53] LABS: Blood Urea Nitrogen 19 mg/dL (9-20); Calcium 8.4 mg/dL (8.4-10.2); Carbon Dioxide 22 mmol/L (22-30); Chloride 110 mmol/L (98-107); Estimated CRCL calculation 43 ml/min; Estimated Glomerular Filt Rate > 60; Glucose 81 mg/dL (75-110); Potassium 3.9 mmol/L (3.4-5.0); Sodium 140 mmol/L (137-145)
[2019-08-20 10:12] VITALS: O2SAT 93
[2019-08-20 14:07] VITALS: BP 162/75; PULSE 50; RESP 16; TEMP 36.4; O2SAT 84
--- NOTE | 2019-08-20 16:52 | PM.IMPN ---
Progress Note: A&P Assessment and Plan (1) Acute encephalopathy: Code(s): G93.40 - Encephalopathy, unspecified Status: Acute Assessment and Plan: Sugar has been corrected and most likely acute metabolic encephalopathy but still remains less responsive according to caregiver. Continue to monitor sugars closely and provide supportive care. MR 1/17 nondiagnostic due to motion artifact Speech therapy feels still not safe for oral meds and food, possible evaluate again 08/21 (2) Hypoglycemia: Code(s): E16.2 - Hypoglycemia, unspecified Status: Acute Assessment and Plan: Metformin and Lantus both are on hold continue to monitor FBS today on D5W still 81 (3) Hypertension: Code(s): I10 - Essential (primary) hypertension Status: Chronic Assessment and Plan: Slightly permissive hypertension because still could be infarct dealing with. He has not been alert enough take his oral medication (4) CHF (congestive heart failure): Code(s): I50.9 - Heart failure, unspecified Status: Chronic Assessment and Plan: Chronic combined systolic and diastolic heart failure as evidence by echo today with EF 15% and grade 3 diastolic dysfunction. l decreased his fluid 08/18 so as not to fluid overload and resume oral medications as soon as possible Subjective Date/time seen: 08/20/19 16:52 Interval history: Date of visit 08/20/2019. 69-year-old hypertensive type 2 diabetic status post CVA with chronic aphasia admitted with altered mental status and found to be hypoglycemic. Sugar was corrected but slow to respond back to his baseline. More alert today but still not following simple commands Exam Narrative: Exam Narrative: Blood pressure 162/74 pulse is 56 and regular satting 92% on room air afebrile Pupils equal reactive to light sclera anicteric Lungs clear no wheezing consolidation CV regular rate rhythm no murmurs Abdomen is soft nontender Extremities without edema Neuro not following any commands but opens eyes to verbal stimuli, nothing definitely focal , has chronic aphasia Objective Data Vital Signs Vital Signs: Vital Signs - 24 hr 08/19/19 19:20 08/19/19 22:00 08/20/19 06:37 Temperature 36.3 C L 36.3 C L Pulse Rate 81 67 Respiratory Rate 20 18 Blood Pressure 151/82 H 107/64 154/80 H Pulse Oximetry 93 98 08/20/19 10:12 08/20/19 14:07 Temperature 36.4 C L Pulse Rate 50 L Respiratory Rate 16 Blood Pressure 162/75 H Pulse Oximetry 93 84 L Intake/Output Intake/Output: Intake & Output 08/17/19 08/18/19 08/19/19 08/20/19 23:59 23:59 23:59 23:59 Intake Total 1000 2500 0 472 Balance 1000 2500 0 472 Meds/Results Medications: Active Medications Generic Name Dose Route Start Last Admin Trade Name Freq PRN Reason Stop Dose Admin Dextrose 12.5 gm 08/17/19 17:11 08/17/19 18:15 Dextrose 50% Syringe IV PUSH 12.5 gm PRN PRN Administration Hypoglycemia Protocol Enoxaparin Sodium 40 mg 08/19/19 21:00 08/19/19 21:41 Lovenox SUB-Q 40 mg HS RUDY Administration Glucose 15 gm 08/17/19 17:11 Glutose 15 PO PRN PRN Hypoglycemia Protocol Hydralazine HCl 10 mg 08/17/19 20:02 08/19/19 17:17 Apresoline Hcl Inj IV PUSH 10 mg Q8H PRN Administration see comments Dextrose 1,000 mls @ 100 mls/hr 08/17/19 17:11 Dextrose 5% 1,000 Ml IVPB PRN PRN Hypoglycemia Protocol Dextrose 1,000 mls @ 50 mls/hr 08/18/19 15:55 08/20/19 05:31 Dextrose 5% 1,000 Ml IV CONT 30 mls/hr .Q20H RUDY Administration Radiology Results: ITS Impressions Chest X-Ray 08/17/19 12:32 Impression: 1: Cardiomegaly with interstitial edema. Head CT 08/17/19 16:23 IMPRESSION: 1. No acute intracranial findings. 2. Chronic age related findings. 3. Old infarctions. Carotid Doppler Study 08/18/19 14:08 IMPRESSION: 1. Less than 50% stenosis in the right internal c
[2019-08-20 18:03] VITALS: O2SAT 96
[2019-08-20] MEDS: ENOXAPARIN 40 MG/0.4 ML SYRINGE SUB-Q (20:31)
[2019-08-20 22:00] VITALS: BP 174/82; PULSE 84; RESP 20; TEMP 36.1; O2SAT 94
[2019-08-21 06:00] VITALS: BP 160/76; PULSE 67; RESP 18; TEMP 36.6; O2SAT 100
[2019-08-21] MEDS: DEXTROSE 5% 1,000 ML 1,000 ML 50 ML IV CONT (06:31)
[2019-08-21 08:00] VITALS: BP 145/78
[2019-08-21 10:35] VITALS: BMI 11.0
[2019-08-21 10:57] LABS: Blood Urea Nitrogen 17 mg/dL (9-20); Calcium 8.3 mg/dL (8.4-10.2); Carbon Dioxide 23 mmol/L (22-30); Chloride 104 mmol/L (98-107); Estimated CRCL calculation 50 ml/min; Estimated Glomerular Filt Rate > 60; Glucose 125 mg/dL (75-110); Potassium 3.4 mmol/L (3.4-5.0); Sodium 136 mmol/L (137-145)
--- NOTE | 2019-08-21 13:08 | PCSTNOTE ---
Two attempts to see patient this date. First attempt, patient working with PT and OT. Second attempt, pt would not rouse to tactile and verbal stimulation and not appropriate for oral intake.
--- NOTE | 2019-08-21 13:48 | PCNFU ---
Nutrition Follow-Up Complete: Inadequate oral intake related to altered mental status as evidenced by NPO diet. Patient to meet estimated nutritional needs. Goal:not met. Pt current nutrition is NPO. Nutrition recommendation: Initiate oral diet per [employer] BI DEVELOPER odalis. if unable to initiate oral diet soon, TF recommendations are for Glucerna at a goal rate of 70 mL/hour with free water flush Q 30 mL Q4H with IV fluids infusing. Last recorded weight is 71.9 kg. Bowel Motility: Labs Reviewed: Cr 1.4, Glu 81-116 Meds Noted:D5 Additional Notes: Per RN pt is nonverbal and VERY confused. Pt currently is unable to follow directions or even acknowledge staff when he is being spoken too. Pt has tried to pull at IV lines. Follow up in 3 days.
[2019-08-21 14:00] VITALS: BP 128/89; PULSE 99; RESP 20; TEMP 36.6; O2SAT 94
--- NOTE | 2019-08-21 15:10 | PM.IMPN ---
Progress Note: A&P Assessment and Plan (1) Acute encephalopathy: Code(s): G93.40 - Encephalopathy, unspecified Status: Acute Assessment and Plan: Sugar has been corrected and most likely acute metabolic encephalopathy . Caregiver relates that has been pocketing food and drooling for 2-3 weeks prior to admission after having a respiratory infection July. Continue to monitor sugars closely and provide supportive care. MR 08/18 nondiagnostic due to motion artifact Speech therapy feels still not safe for oral meds and food, revaluated again today (2) Hypoglycemia: Code(s): E16.2 - Hypoglycemia, unspecified Status: Acute Assessment and Plan: Metformin and Lantus both are on hold continue to monitor FBS today 125, pulled out IV and should be fine now (3) Hypertension: Code(s): I10 - Essential (primary) hypertension Status: Chronic Assessment and Plan: Slightly permissive hypertension because could have been small stroke dealing with. He has not been alert enough take his oral medication (4) CHF (congestive heart failure): Code(s): I50.9 - Heart failure, unspecified Status: Chronic Assessment and Plan: Chronic combined systolic and diastolic heart failure as evidence by echo with EF 15% and grade 3 diastolic dysfunction. l decreased his fluid 08/18 so as not to fluid overload and resume oral medications as soon as possible Subjective Date/time seen: 08/21/19 15:10 Interval history: Date of visit 08/21/2019. 69-year-old hypertensive type 2 diabetic status post CVA with chronic aphasia admitted with altered mental status and found to be hypoglycemic. Sugar was corrected but slow to respond back to his baseline. More each day but still not following simple commands Discussed case with caregiver Ms Stover and she relates that he has had a go PEG tube in the past but was not sure if she and the POA son were wanting to repeat that. Told her that the option is a PEG tube verses continued feeding and if he aspirates deal with added at a later time. told her that they will need to discuss that with the POA son Exam Narrative: Exam Narrative: Blood pressure 144/76 pulse is 68 and regular satting 100% on 6L afebrile Pupils equal reactive to light sclera anicteric Lungs clear no wheezing consolidation CV regular rate rhythm no murmurs Abdomen is soft nontender Extremities without edema Neuro not following any commands but much more alert , has chronic aphasia Speech therapy relates that still pocketing food and drooling Objective Data Vital Signs Vital Signs: Vital Signs - 24 hr 08/20/19 18:03 08/20/19 22:00 08/21/19 06:00 Temperature 36.1 C L 36.6 C Pulse Rate 84 67 Respiratory Rate 20 18 Blood Pressure 174/82 H 160/76 H Pulse Oximetry 96 94 100 08/21/19 08:00 Temperature Pulse Rate Respiratory Rate Blood Pressure 145/78 H Pulse Oximetry Intake/Output Intake/Output: Intake & Output 08/18/19 08/19/19 08/20/19 08/21/19 23:59 23:59 23:59 23:59 Intake Total 2500 0 784 688 Balance 2500 0 784 688 Meds/Results Medications: Active Medications Generic Name Dose Route Start Last Admin Trade Name Freq PRN Reason Stop Dose Admin Dextrose 12.5 gm 08/17/19 17:11 08/17/19 18:15 Dextrose 50% Syringe IV PUSH 12.5 gm PRN PRN Administration Hypoglycemia Protocol Enoxaparin Sodium 40 mg 08/19/19 21:00 08/20/19 20:31 Lovenox SUB-Q 40 mg HS RUDY Administration Glucose 15 gm 08/17/19 17:11 Glutose 15 PO PRN PRN Hypoglycemia Protocol Hydralazine HCl 10 mg 08/17/19 20:02 08/19/19 17:17 Apresoline Hcl Inj IV PUSH 10 mg Q8H PRN Administration see comments Dextrose 1,000 mls @ 100 mls/hr 08/17/19 17:11 Dextrose 5% 1,000 Ml IVPB PRN PRN Hypoglycemia Protocol Dextrose 1,000 mls @ 50 mls/hr 08/18/19 15:55 08/21/19 06:31 Dextrose 5% 1,000 Ml IV CON
[2019-08-21 16:08] LABS: Glucose Point of Care 92 (65-105)
[2019-08-21 16:08] LABS: Glucose Point of Care 90 (65-105)
[2019-08-21 16:08] LABS: Glucose Point of Care 71 (65-105)
[2019-08-21 16:09] LABS: Glucose Point of Care 120 (65-105)
[2019-08-21 16:09] LABS: Glucose Point of Care 117 (65-105)
[2019-08-21 16:09] LABS: Glucose Point of Care 125 (65-105)
[2019-08-21 16:09] LABS: Glucose Point of Care 101 (65-105)
[2019-08-21 18:34] LABS: Glucose Point of Care 142 (65-105)
[2019-08-21 20:56] LABS: Glucose Point of Care 112 (65-105)
[2019-08-21 22:00] VITALS: BP 130/70; PULSE 97; RESP 20; TEMP 36.7; O2SAT 94
[2019-08-21] MEDS: ENOXAPARIN 40 MG/0.4 ML SYRINGE SUB-Q (22:15)
[2019-08-22 05:36] LABS: Glucose Point of Care 106 (65-105)
[2019-08-22 06:00] VITALS: BP 169/79; PULSE 64; RESP 20; TEMP 36.4; O2SAT 100
[2019-08-22 06:43] LABS: Blood Urea Nitrogen 16 mg/dL (9-20); Calcium 8.7 mg/dL (8.4-10.2); Carbon Dioxide 22 mmol/L (22-30); Chloride 105 mmol/L (98-107); Estimated CRCL calculation 46 ml/min; Estimated Glomerular Filt Rate > 60; Glucose 108 mg/dL (75-110); Potassium 3.9 mmol/L (3.4-5.0); Sodium 139 mmol/L (137-145)
[2019-08-22 11:38] LABS: Glucose Point of Care 117 (65-105)
[2019-08-22 14:00] VITALS: BP 176/81; PULSE 81; RESP 16; TEMP 36.7; O2SAT 96
[2019-08-22 15:18] VITALS: O2SAT 95
--- NOTE | 2019-08-22 16:17 | PCSTNOTE ---
Attempted treatment on this date; pt was sitting bedside in tree chair; nonverbal. Pt was presented with 2 trials of puree. Abnormal oral hold then after approximately 20-30 seconds and verbal cueing, pt triggered a swallow. No clinical signs of aspiration were exhibited. Pt then turned over and did not participate any further. Recommend MBS when pt can participate, definitively determine a safe diet, then ST discharge as pt is not a candidate for skilled therapy as he cannot follow commands or actively participate in tx.
--- NOTE | 2019-08-22 16:52 | PM.IMPN ---
Progress Note: A&P Assessment and Plan (1) Acute encephalopathy: Code(s): G93.40 - Encephalopathy, unspecified Status: Acute Assessment and Plan: Sugar has been corrected and most likely acute metabolic encephalopathy . Caregiver related to Dr. Costello that pt has been pocketing food and drooling for 2-3 weeks prior to admission after having a respiratory infection July. Continue to monitor sugars closely and provide supportive care. MR 08/18 nondiagnostic due to motion artifact. 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 Carotid dopplers negative. Cannot exculde recent recurrent stroke Speech therapy feels still not safe for oral meds and food, but family wishes to feed PO instead of FT. MBS 08/23 (if he will participate (2) CHF (congestive heart failure): Qualifiers: Heart failure type: systolic Heart failure chronicity: chronic Qualified Code(s): I50.22 - Chronic systolic (congestive) heart failure Code(s): I50.9 - Heart failure, unspecified Status: Chronic Assessment and Plan: Chronic combined systolic and diastolic heart failure as evidence by echo with EF 15% and grade 3 diastolic dysfunction. 08/22 furosemide 20mg iv x 1 and resumed losartan, carvedilol, and aspirin 08/22 d/w [facility] chief communications officer. Pt noncompliant with f/u. They received message requesting transfer. (3) Hypoglycemia: Code(s): E16.2 - Hypoglycemia, unspecified Status: Acute Assessment and Plan: Metformin and Lantus both are on hold continue to monitor 08/21 FBS 125, pt pulled out IV 08/22 FBS 106, continue to monitor (4) Hypertension: Qualifiers: Hypertension type: essential hypertension Qualified Code(s): I10 - Essential (primary) hypertension Code(s): I10 - Essential (primary) hypertension Status: Chronic Assessment and Plan: 08/22 resumed losartan and carvedilol, continue prn hydralazine Subjective Date/time seen: 08/22/19 16:52 Interval history: Nonverbal. Uncooperative. Review of Systems Review of Systems: ROS unobtainable: unobtainable due to mental status Exam Narrative: Exam Narrative: HEENT: EOMI, PERRL, pharyngeal mucosa pink and intact NECK: No JVD, adenopathy, or thyromegaly CHEST: Clear to auscultation with decreased basilar BS. Normal effort. HEART: NL S1/S2, regular, gallop (possibly S3), no murmur ABDOMEN: BS+, soft, nontender, no mass, no bruits EXTREMITIES: No cyanosis, 1+ ankle edema NEUROLOGIC: Mild right facial droop MUSCULOSKELETAL: Right hemiplegia PSYCH: Alert. Nonverbal. Objective Data Vital Signs Vital Signs: Vital Signs - 24 hr 08/21/19 22:00 08/22/19 06:00 08/22/19 14:00 Temperature 98.0 F 97.6 F 98.1 F Pulse Rate 97 64 81 Respiratory Rate 20 20 16 Blood Pressure 130/70 169/79 H 176/81 H Pulse Oximetry 94 100 96 08/22/19 15:18 Temperature Pulse Rate Respiratory Rate Blood Pressure Pulse Oximetry 95 Intake/Output Intake/Output: Intake & Output 08/19/19 08/20/19 08/21/19 08/22/19 23:59 23:59 23:59 23:59 Intake Total 0 784 688 60 Balance 0 784 688 60 Meds/Results Medications: Active Medications Generic Name Dose Route Start Last Admin Trade Name Freq PRN Reason Stop Dose Admin Aspirin 325 mg 08/23/19 09:00 Aspirin PO DAILY RUDY Carvedilol 25 mg 08/22/19 21:00 Coreg PO Q12HR RUDY Citalopram Hydrobromide 20 mg 08/23/19 09:00 Celexa PO DAILY RUDY Dextrose 12.5 gm 08/17/19 17:11 08/17/19 18:15 Dextrose 50% Syringe IV PUSH 12.5 gm PRN PRN Administration Hypoglycemia Protocol Enoxaparin Sodium 40 mg 08/19/19 21:00 08/21/19 22:15 Lovenox SUB-Q 40 mg HS RUDY Administration Famotidine 20 mg 08/22/19 21:00 Pepcid PO Q12HR RUDY Glucose 15 gm 08/17/19 17:11 Glutose 15 PO PRN PRN Hypoglycemia Protocol Hydralazine HCl 10 mg 08/17/19 20:02 08/19/19 17:17 Apresoline Hcl Inj IV PUSH 10 m
[2019-08-22 18:09] LABS: Glucose Point of Care 172 (65-105)
[2019-08-22 21:07] VITALS: O2SAT 98
[2019-08-22] MEDS: FAMOTIDINE 20 MG TABLET PO (21:34)
[2019-08-22 21:35] VITALS: PULSE 83
[2019-08-22] MEDS: carvediloL 25 MG TABLET PO (21:35)
[2019-08-22] MEDS: ENOXAPARIN 40 MG/0.4 ML SYRINGE SUB-Q (21:36)
[2019-08-22 22:00] VITALS: BP 152/85; PULSE 104; RESP 20; TEMP 37.2; O2SAT 94
[2019-08-22 23:58] LABS: Glucose Point of Care 146 (65-105)
[2019-08-23] VITALS (7 sets, daily range): BP systolic 129–159; BP diastolic 66–90; PULSE 76–78; RESP 20–22; TEMP 36.3–37.1; O2SAT 90–98
[2019-08-23 05:37] LABS: Glucose Point of Care 111 (65-105)
[2019-08-23] MEDS: carvediloL 25 MG TABLET PO ×2 (08:01→20:38)
[2019-08-23] MEDS: ASPIRIN 325 MG TABLET PO (08:01)
[2019-08-23] MEDS: FAMOTIDINE 20 MG TABLET PO ×2 (08:02→20:38)
[2019-08-23] MEDS: ROSUVASTATIN 10 MG TABLET 20 MG PO (08:02)
[2019-08-23] MEDS: CITALOPRAM HYDROBROMIDE 20 MG TABLET PO (08:02)
[2019-08-23] MEDS: LOSARTAN POTASSIUM 25 MG TABLET PO (08:02)
[2019-08-23 08:19] LABS: Hematocrit 53.9 % (42.0-52.0); Hemoglobin 16.4 g/dL (14.0-18.0); Mean Corpuscular HGB Conc 30.4 g/dl (32-36); Mean Corpuscular Volume 95.4 fl (80-100); Mean Platelet Volume 9.4 fl (7.4-10.4); Platelet Count Result 160 k/mm3 (150-375); Red Blood Count 5.65 M/mm3 (4.6-6.20); Red Cell Distribution Width 15.9 % (11.5-14.5); White Blood Count 3.2 K/mm3 (4.5-10.0)
[2019-08-23 08:30] LABS: Blood Urea Nitrogen 16 mg/dL (9-20); Calcium 8.7 mg/dL (8.4-10.2); Carbon Dioxide 19 mmol/L (22-30); Chloride 106 mmol/L (98-107); Estimated CRCL calculation 50 ml/min; Estimated Glomerular Filt Rate > 60; Glucose 107 mg/dL (75-110); Potassium 3.8 mmol/L (3.4-5.0); Sodium 137 mmol/L (137-145)
--- NOTE | 2019-08-23 10:35 | PCSTNOTE ---
Please refer to the Modified Barium Swallow Evaluation in the EMR.
[2019-08-23 11:44] LABS: Glucose Point of Care 128 (65-105)
--- NOTE | 2019-08-23 13:12 | PCPTNOTE ---
Attempted therapy session. Pt would not actively participate and resisted therapists prompting. Pt is non verbal. Pt would make eye contact briefly with therapist and then close his eyes again. Will continue per POC.
--- NOTE | 2019-08-23 16:13 | PM.IMPN ---
Progress Note: A&P Assessment and Plan (1) Acute encephalopathy: Code(s): G93.40 - Encephalopathy, unspecified Status: Acute Assessment and Plan: Sugar has been corrected and most likely acute metabolic encephalopathy . Caregiver related to Dr. Costello that pt has been pocketing food and drooling for 2-3 weeks prior to admission after having a respiratory infection July. Continue to monitor sugars closely and provide supportive care. MR 08/18 nondiagnostic due to motion artifact. 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 Carotid dopplers negative. Cannot exculde recent recurrent stroke Speech therapy feels still not safe for oral meds and food, but family wishes to feed PO instead of FT. MBS 08/23 with severe dysphagia. (2) CHF (congestive heart failure): Qualifiers: Heart failure type: systolic Heart failure chronicity: chronic Qualified Code(s): I50.22 - Chronic systolic (congestive) heart failure Code(s): I50.9 - Heart failure, unspecified Status: Chronic Assessment and Plan: Chronic combined systolic and diastolic heart failure as evidence by echo with EF 15% and grade 3 diastolic dysfunction. 08/22 furosemide 20mg iv x 1 and resumed losartan, carvedilol, and aspirin 08/22 d/w . 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 Pt noncompliant with f/u. They received message requesting transfer. 08/23 clinically stable (3) Hypoglycemia: Code(s): E16.2 - Hypoglycemia, unspecified Status: Acute Assessment and Plan: Metformin and Lantus both are on hold continue to monitor 08/21 FBS 125 08/22 FBS 106 08/23 FBS 107 Continue to monitor (4) Hypertension: Qualifiers: Hypertension type: essential hypertension Qualified Code(s): I10 - Essential (primary) hypertension Code(s): I10 - Essential (primary) hypertension Status: Chronic Assessment and Plan: 08/22 resumed losartan and carvedilol, continue prn hydralazine 08/23 138/77 Subjective Date/time seen: 08/23/19 16:13 Interval history: Nonverbal. Uncooperative. Review of Systems Review of Systems: All systems reviewed & are unremarkable except as noted in HPI and below ROS unobtainable: unobtainable due to mental status Exam Narrative: Exam Narrative: HEENT: EOMI, PERRL, pharyngeal mucosa pink and intact NECK: No JVD, adenopathy, or thyromegaly CHEST: Clear to auscultation with decreased basilar BS. Normal effort. HEART: NL S1/S2, regular, gallop (possibly S3), no murmur ABDOMEN: BS+, soft, nontender, no mass, no bruits EXTREMITIES: No cyanosis, 1+ ankle edema NEUROLOGIC: Mild right facial droop MUSCULOSKELETAL: Right hemiplegia PSYCH: Alert. Nonverbal. Objective Data Vital Signs Vital Signs: Vital Signs - 24 hr 08/22/19 21:07 08/22/19 21:35 08/22/19 22:00 Temperature 99.0 F Pulse Rate 83 104 H Respiratory Rate 20 Blood Pressure 152/85 H Pulse Oximetry 98 94 08/23/19 05:55 08/23/19 07:52 08/23/19 08:00 Temperature 97.3 F L Pulse Rate 77 77 Respiratory Rate 20 20 Blood Pressure 129/66 Pulse Oximetry 96 96 95 08/23/19 08:17 08/23/19 14:00 Temperature 98.7 F Pulse Rate 78 Respiratory Rate 22 H Blood Pressure 138/77 Pulse Oximetry 90 94 Intake/Output Intake/Output: Intake & Output 08/20/19 08/21/19 08/22/19 08/23/19 23:59 23:59 23:59 23:59 Intake Total 784 688 60 400 Balance 784 688 60 400 Meds/Results Medications: Active Medications Generic Name Dose Route Start Last Admin Trade Name Freq PRN Reason Stop Dose Admin Aspirin 325 mg 08/23/19 09:00 08/23/19 08:01 Aspirin PO 325 mg DAILY RUDY Administration Carvedilol 25 mg 08/22/19 21:00 08/23/19 08:01 Coreg PO 25 mg Q12HR RUDY Administration Citalopram Hydrobromide 20 mg 08/23/19 09:00 08/23/19 08:02 Celexa PO 20 mg DAILY RUDY Administration Dextrose 12.5 gm 08/17/19 17:11 08/17/19 18:15 Dextrose 50% Syringe IV PUSH 12.5 gm PRN PRN Administration
[2019-08-23 17:56] LABS: Glucose Point of Care 154 (65-105)
[2019-08-23] MEDS: ENOXAPARIN 40 MG/0.4 ML SYRINGE SUB-Q (20:38)
[2019-08-24 06:00] VITALS: BP 154/90; BP 177/92; PULSE 77; PULSE 79; RESP 18; RESP 22; TEMP 36.3; TEMP 36.9; O2SAT 100; O2SAT 99
[2019-08-24 06:53] LABS: Glucose Point of Care 128 (65-105)
[2019-08-24 08:07] VITALS: O2SAT 90
--- NOTE | 2019-08-24 08:43 | PCPTNOTE ---
Pt does not follow directions to participate and follow through with LE exercises.
[2019-08-24 11:59] LABS: Glucose Point of Care 113 (65-105)
--- NOTE | 2019-08-24 13:13 | PM.IMPN ---
Progress Note: A&P Assessment and Plan (1) Acute encephalopathy: Code(s): G93.40 - Encephalopathy, unspecified Status: Acute Assessment and Plan: Sugar has been corrected and most likely acute metabolic encephalopathy . Caregiver related to Dr. Costello that pt has been pocketing food and drooling for 2-3 weeks prior to admission after having a respiratory infection July. Continue to monitor sugars closely and provide supportive care. MR 08/18 nondiagnostic due to motion artifact. 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 Carotid dopplers negative. Cannot exculde recent recurrent stroke Speech therapy feels still not safe for oral meds and food, but family wishes to feed PO instead of FT. MBS 08/23 with severe dysphagia. Discussed by phone with sonJosue. He was to discuss with other family members and return my call 08/24 08/24 Awaiting word from sonJosue, re: comfort care vs PEG. (2) CHF (congestive heart failure): Qualifiers: Heart failure type: systolic Heart failure chronicity: chronic Qualified Code(s): I50.22 - Chronic systolic (congestive) heart failure Code(s): I50.9 - Heart failure, unspecified Status: Chronic Assessment and Plan: Chronic combined systolic and diastolic heart failure as evidence by echo with EF 15% and grade 3 diastolic dysfunction. 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 Pt noncompliant with f/u. They received message requesting transfer. 08/23 clinically stable (3) Hypoglycemia: Code(s): E16.2 - Hypoglycemia, unspecified Status: Acute Assessment and Plan: Metformin and Lantus both are on hold continue to monitor 08/21 FBS 125 08/22 FBS 106 08/23 FBS 107 08/24 FBS 128 Continue to monitor (4) Hypertension: Qualifiers: Hypertension type: essential hypertension Qualified Code(s): I10 - Essential (primary) hypertension Code(s): I10 - Essential (primary) hypertension Status: Chronic Assessment and Plan: 08/22 resumed losartan and carvedilol, continue prn hydralazine 08/23 138/77 08/24 154.90 Subjective Date/time seen: 08/24/19 13:13 Interval history: Nonverbal. Uncooperative. Review of Systems Review of Systems: ROS unobtainable: unobtainable due to mental status Exam Narrative: Exam Narrative: HEENT: EOMI, PERRL, pharyngeal mucosa pink and intact NECK: No JVD CHEST: Clear to auscultation with decreased basilar BS. Normal effort. HEART: NL S1/S2, regular, gallop (possibly S3), no murmur ABDOMEN: BS+, soft, nontender, no mass, no bruits EXTREMITIES: No cyanosis, 1+ ankle edema NEUROLOGIC: Mild right facial droop MUSCULOSKELETAL: Right hemiplegia PSYCH: Alert. Nonverbal. Objective Data Vital Signs Vital Signs: Vital Signs - 24 hr 08/23/19 14:00 08/23/19 20:38 08/23/19 22:00 Temperature 98.7 F 98.3 F Pulse Rate 78 77 76 Respiratory Rate 22 H 22 H Blood Pressure 138/77 159/90 H Pulse Oximetry 94 98 08/24/19 06:00 08/24/19 08:07 Temperature 98.5 F Pulse Rate 79 Respiratory Rate 22 H Blood Pressure 154/90 H Pulse Oximetry 99 90 Intake/Output Intake/Output: Intake & Output 08/21/19 08/22/19 08/23/19 08/24/19 23:59 23:59 23:59 23:59 Intake Total 688 60 460 Balance 688 60 460 Meds/Results Medications: Active Medications Generic Name Dose Route Start Last Admin Trade Name Freq PRN Reason Stop Dose Admin Aspirin 325 mg 08/23/19 09:00 08/23/19 08:01 Aspirin PO 325 mg DAILY RUDY Administration Carvedilol 25 mg 08/22/19 21:00 08/23/19 20:38 Coreg PO 25 mg Q12HR RUDY Administration Citalopram Hydrobromide 20 mg 08/23/19 09:00 08/23/19 08:02 Celexa PO 20 mg DAILY RUDY Administration Dextrose 12.5 gm 08/17/19 17:11 08/17/19 18:15 Dextrose 50% Syringe IV PUSH 12.5 gm PRN PRN Administration Hypoglycemia Protocol Enoxaparin Sodium 40 mg 08/19/19 2
--- NOTE | 2019-08-24 13:15 | PCDIET ---
Nutrition Follow-Up Complete: Inadequate oral intake related to altered mental status as evidenced by NPO diet. Patient to meet estimated nutritional needs. Goal:Unable to meet goal at this time. Pt current nutrition is NPO. Nutrition recommendation: Agree Last recorded weight is 75.8 kg. Bowel Motility: Labs Reviewed: Glucose 128 Meds Noted: Additional Notes: Pt has been NPO since our assessment on the . Wt down 11lbs. Non oral feedings recommended by [employer]. According to RN, family does not want EN. No family in the room today. MD discussing hospice with family per RN. If family agreeable to EN, I would recommend Glucerna 1.2 with a goal of 65ml/hr over 22hrs to provide 1716 kcals, 86g protein, and 1151ml of free water. EN should start slow with goal of day 1 at 30ml/hr due to prolonged NPO period and risk for refeeding syndrome. We will continue to follow every three days. Follow up in 3 days.
[2019-08-24 14:00] VITALS: BP 168/107; PULSE 61; RESP 12; TEMP 37; O2SAT 100
[2019-08-24 14:55] VITALS: PULSE 92
[2019-08-24] MEDS: LOSARTAN POTASSIUM 25 MG TABLET PO (14:55)
[2019-08-24] MEDS: carvediloL 25 MG TABLET PO ×2 (14:55→21:25)
[2019-08-24] MEDS: ASPIRIN 325 MG TABLET PO (14:55)
[2019-08-24] MEDS: ROSUVASTATIN 10 MG TABLET 20 MG PO (14:55)
[2019-08-24] MEDS: FAMOTIDINE 20 MG TABLET PO ×2 (14:56→21:25)
[2019-08-24] MEDS: CITALOPRAM HYDROBROMIDE 20 MG TABLET PO (14:56)
--- NOTE | 2019-08-24 15:11 | PCOTNOTE ---
Attempted to see patient at this time, however patient and family speaking to doctor at this time.
[2019-08-24 19:55] LABS: Glucose Point of Care 85 (65-105)
--- NOTE | 2019-08-24 20:45 | PC.NURSE ---
Pt refused meds during morning med pass. [employer] notified me of elevated BP. Tried to administer PO meds again since significant other was present. He proceeded to take the applesauce with meds in his mouth, but pocketed and began drooling the mixture back out. Tried two bites, some remained in his mouth. Dr. Perera aware.
--- NOTE | 2019-08-24 20:47 | PC.NURSE ---
Pt was to go on hospice, but sig other stated she and his son had changed their mind. Care coordination Aleena stated he was good to go to [facility] for rehab, but he still was NPO. Dr. Perera states he needs to have a waiver signed to consume food. I attempted to call the son who refused the waiver and called the significant other. The son called me back and stated that most likely they will do hospice at home, but they need help to set this up with care coordination.
[2019-08-24 21:25] VITALS: PULSE 78
[2019-08-24] MEDS: ENOXAPARIN 40 MG/0.4 ML SYRINGE SUB-Q (21:25)
[2019-08-24 22:00] VITALS: BP 173/74; PULSE 83; RESP 18; TEMP 36.3; O2SAT 94
[2019-08-25 00:40] LABS: Glucose Point of Care 101 (65-105)
[2019-08-25 06:24] LABS: Blood Urea Nitrogen 20 mg/dL (9-20); Calcium 8.8 mg/dL (8.4-10.2); Carbon Dioxide 25 mmol/L (22-30); Chloride 108 mmol/L (98-107); Estimated CRCL calculation 46 ml/min; Estimated Glomerular Filt Rate > 60; Glucose 115 mg/dL (75-110); Potassium 4.1 mmol/L (3.4-5.0); Sodium 142 mmol/L (137-145)
[2019-08-25 06:31] LABS: Glucose Point of Care 94 (65-105)
--- NOTE | 2019-08-25 10:28 | PM.DS ---
DS: Diagnosis Admitting Diagnosis Admitting Diagnosis: Encephalopathy, unspecified Discharge Diagnosis (1) Acute encephalopathy: Code(s): G93.40 - Encephalopathy, unspecified Status: Acute Assessment and Plan: Sugar has been corrected and most likely acute metabolic encephalopathy . Caregiver related to Dr. Costello that pt has been pocketing food and drooling for 2-3 weeks prior to admission after having a respiratory infection July. Continue to monitor sugars closely and provide supportive care. MR 08/18 nondiagnostic due to motion artifact. 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 Carotid dopplers negative. Cannot exculde recent recurrent stroke Speech therapy feels still not safe for oral meds and food, but family wishes to feed PO instead of FT. MBS 08/23 with severe dysphagia. Discussed by phone with sonJosue. He was to discuss with other family members and return my call 08/24 08/24 Awaiting word from sonJosue, re: comfort care vs PEG. 08/25 Josue opted for hospice care last PM (2) CHF (congestive heart failure): Qualifiers: Heart failure chronicity: chronic Heart failure type: systolic Qualified Code(s): I50.22 - Chronic systolic (congestive) heart failure Code(s): I50.9 - Heart failure, unspecified Status: Chronic Assessment and Plan: Chronic combined systolic and diastolic heart failure as evidence by echo with EF 15% and grade 3 diastolic dysfunction. 08/22 furosemide 20mg iv x 1 and resumed losartan, carvedilol, and aspirin 08/22 d/w . 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 Pt noncompliant with f/u. They received message requesting transfer. 08/23 clinically stable 08/25 clinically stable (3) Hypoglycemia: Code(s): E16.2 - Hypoglycemia, unspecified Status: Acute Assessment and Plan: Metformin and Lantus both are on hold continue to monitor 08/21 FBS 125 08/22 FBS 106 08/23 FBS 107 08/24 FBS 128 08/25 FBS 115 Continue to monitor (4) Hypertension: Qualifiers: Hypertension type: essential hypertension Qualified Code(s): I10 - Essential (primary) hypertension Code(s): I10 - Essential (primary) hypertension Status: Chronic Assessment and Plan: 08/22 resumed losartan and carvedilol, continue prn hydralazine 08/23 138/77 1/23 154/90 08/25 173/74 (5) Vascular dementia with behavior disturbance: Code(s): F01.51 - Vascular dementia with behavioral disturbance Status: Acute DS: Summary Hospital Course Reason for hospitalization: Confusion and hypoglycemia Hospital Course: Patient was admitted with confusion hypoglycemia. With correction of his blood sugar he improved to baseline. However he has been declining over the last several months. Since he had an upper respiratory infection a month ago he is that declined more. Eating less. Moving about less. Speaking much less. He did very poorly on modified barium swallow with severe aspiration. He did not trigger swallowing mechanism while at all. He pulled out IVs multiple times. He was resistant to care. Uncooperative angry. His son opted for discharge on hospice care at a facility. Case revealed Nursing and Rehab. Time Spent with Patient Time attestation: Total time spent providing and/or coordinating discharge services: 36 min Exam Narrative: Exam Narrative: HEENT: EOMI, PERRL, pharyngeal mucosa pink and intact NECK: No JVD CHEST: Clear to auscultation with decreased basilar BS. Normal effort. HEART: NL S1/S2, regular, gallop (possibly S3), no murmur ABDOMEN: BS+, soft, nontender, no mass, no bruits EXTREMITIES: No cyanosis, 1+ ankle edema NEUROLOGIC: Mild right facial droop MUSCULOSKELETAL: Right hemiplegia PSYCH: Alert. Nonverbal. DS: Data Data Completed and Pending Labs on day of discharge: Labs from last 24 hours 08/25/19 08/25/19 08/25/19 06:00 05:54 00:37 Sodium 142 Potassium 4.1 Chloride 108 H Carbon Dioxide 25 BUN 20 Creatinine 1.30 Estim
[2019-08-25 12:03] LABS: Glucose Point of Care 85 (65-105)
[2019-08-25 14:42] VITALS: BP 147/64; PULSE 54; RESP 16; TEMP 36.6; O2SAT 97
--- NOTE | 2019-08-25 14:53 | PM.IMPN ---
Progress Note: A&P Assessment and Plan (1) Acute encephalopathy: Code(s): G93.40 - Encephalopathy, unspecified Status: Acute Assessment and Plan: Sugar has been corrected and most likely acute metabolic encephalopathy . Caregiver related to Dr. Costello that pt has been pocketing food and drooling for 2-3 weeks prior to admission after having a respiratory infection July. Continue to monitor sugars closely and provide supportive care. MR 08/18 nondiagnostic due to motion artifact. 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 Carotid dopplers negative. Cannot exculde recent recurrent stroke Speech therapy feels still not safe for oral meds and food, but family wishes to feed PO instead of FT. MBS 08/23 with severe dysphagia. Discussed by phone with son, Josue. He was to discuss with other family members and return my call 08/24 08/24 Awaiting word from sonJosue, re: comfort care vs PEG. 08/25 Josue opted for hospice care last PM; but now unable to reach him, re: placement and DNR (2) CHF (congestive heart failure): Qualifiers: Heart failure type: systolic Heart failure chronicity: chronic Qualified Code(s): I50.22 - Chronic systolic (congestive) heart failure Code(s): I50.9 - Heart failure, unspecified Status: Chronic Assessment and Plan: Chronic combined systolic and diastolic heart failure as evidence by echo with EF 15% and grade 3 diastolic dysfunction. 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 Pt noncompliant with f/u. They received message requesting transfer. 08/23 clinically stable 08/25 clinically stable (3) Hypoglycemia: Code(s): E16.2 - Hypoglycemia, unspecified Status: Acute Assessment and Plan: Metformin and Lantus both are on hold continue to monitor 08/21 FBS 125 08/22 FBS 106 08/23 FBS 107 08/24 FBS 128 08/25 FBS 115 Continue to monitor (4) Hypertension: Qualifiers: Hypertension type: essential hypertension Qualified Code(s): I10 - Essential (primary) hypertension Code(s): I10 - Essential (primary) hypertension Status: Chronic Assessment and Plan: 08/22 resumed losartan and carvedilol, continue prn hydralazine 08/23 138/77 08/24 154/90 08/25 173/74 (5) Vascular dementia with behavior disturbance: Code(s): F01.51 - Vascular dementia with behavioral disturbance Status: Acute Subjective Date/time seen: 08/25/19 14:53 Interval history: Nonverbal. Uncooperative. Exam Narrative: Exam Narrative: HEENT: EOMI, PERRL, pharyngeal mucosa pink and intact NECK: No JVD CHEST: Clear to auscultation with decreased basilar BS. Normal effort. HEART: NL S1/S2, regular, gallop (possibly S3), no murmur ABDOMEN: BS+, soft, nontender, no mass, no bruits EXTREMITIES: No cyanosis, 1+ ankle edema NEUROLOGIC: Mild right facial droop MUSCULOSKELETAL: Right hemiplegia PSYCH: Alert. Nonverbal. Objective Data Vital Signs Vital Signs: Vital Signs - 24 hr 08/24/19 14:55 08/24/19 21:25 08/24/19 22:00 Temperature 97.3 F L Pulse Rate 92 78 83 Respiratory Rate 18 Blood Pressure 173/74 H Pulse Oximetry 94 08/25/19 14:42 Temperature 97.8 F Pulse Rate 54 L Respiratory Rate 16 Blood Pressure 147/64 H Pulse Oximetry 97 Intake/Output Intake/Output: Intake & Output 08/22/19 08/23/19 08/24/19 08/25/19 23:59 23:59 23:59 23:59 Intake Total 60 460 0 0 Output Total 0 Balance 60 460 0 0 Meds/Results Medications: Active Medications Generic Name Dose Route Start Last Admin Trade Name Freq PRN Reason Stop Dose Admin Aspirin 325 mg 08/23/19 09:00 08/24/19 14:55 Aspirin PO 325 mg DAILY RUDY Administration Carvedilol 25 mg 08/22/19 21:00 08/24/19 21:25 Coreg PO 25 mg Q12HR RUDY Administration Citalopram Hydrobromide 20 mg 08/23/19 09:00 08/24/19 14:56 Celexa PO 20 mg DAILY RUDY Administration Clonidine HCl 1 pat
[2019-08-25 15:53] VITALS: O2SAT 91
== END 2019-08-25 17:00 | disposition hospice, inpatient (51) | DRG 638 ==
LOC: ANHED 17:16 → ANHIMU 18:16 → ANH3MEDSUR 08-19 10:39
PROVIDERS: Family Medicine; Internal Medicine; Admitting Provider Family Medicine; Emergency Provider Emergency Medicine; PCP Internal Medicine; Visit Provider Internal Medicine
DX: E11.649 Type 2 diabetes mellitus with hypoglycemia without coma (principal); F01.51 Vascular dementia, unspecified severity, with behavioral disturbance; I50.42 Chronic combined systolic (congestive) and diastolic (congestive) heart failure; I11.0 Hypertensive heart disease with heart failure; I69.320 Aphasia following cerebral infarction; I69.391 Dysphagia following cerebral infarction; R13.10 Dysphagia, unspecified; R55 Syncope and collapse; Z87.891 Personal history of nicotine dependence; Z79.82 Long term (current) use of aspirin; Z79.4 Long term (current) use of insulin
CPT/HCPCS: 36415; 70450; 70551; 71045; 80048; 80061; 81001; 82607; 82746; 82948; 84443; 85025; 85027; 92610; 92611; 93005; 93306; 93880; 96361; 96365; 96366; 96367; 96374; 96375; 96376; 97110; 97116; 97162; 97166; 97530; 99285; A9270; G0378; J0360; J1650; J3480; J7070